=== PATIENT | male | born 1945 | race Caucasian/White ===

== ENCOUNTER 2016-10-10 18:20 | Inpatient (IN) | payer OTHER, MEDICARE ==
[~2016-10-10] VITALS: Ht 182.9 cm; Wt 121.0 kg
[2016-10-10] VITALS (8 sets, daily range): BP systolic 116–174; BP diastolic 56–74; PULSE 66–97; RESP 16–23; TEMP 97.9–98.1; O2SAT 93–96
--- NOTE | 2016-10-10 18:38 | PD ---
HPI Chief Complaint: Cardiac Complaint Time Seen by Provider: 18:31 Travel History International Travel<30 days: No Contact w/Intl Traveler<30days: No History of Present Illness HPI 71yo M with PMH of afib not on anticoagulation, CAD s/p CABG, aortic aneurysm ( No change with repeat CTs every 6 months so now it is every year) presents to the ED with c/o near syncopal episode today. Pt was sitting on the toilet when he felt dizzy, diaphoretic, almost passed out. Pt states it lasted about 45 minutes. As per EVAC, he had 2 episodes of Vtach that lasted less than 1 minute. Pt also had a near syncopal episode yesterday while sitting in a restaurant. While being evaluated in the ED, pt had an episode of Vtach in the 200s that lasted few seconds and went back to afib in 90s. Denies any chest pain, sob, n/v, abdominal pain, focal weakness or numbness or fall. Allergies-Medications Reported Meds & Prescriptions Reported Meds & Active Scripts Active Reported Clotrimazole Natalie (Clotrimazole) 10 Mg Troc 10 Mg PO 5 TIMES A DAY PRN Nitrostat SL (Nitroglycerin) 0.4 Mg Subl 0.4 Mg SL DIRECTED PRN 1 tablet under the tongue as needed for chest pain. Repeat every 5 minutes for a total of 3 DOSES or call 911 if NO relief. Crestor (Rosuvastatin Calcium) 20 Mg Tab 20 Mg PO HS Morphine ER (Morphine Sulfate) 15 Mg Tab 30 Mg PO HS Colace (Docusate Sodium) 100 Mg Capsule 200 Mg PO HS Tylenol Extra Strength (Acetaminophen) 500 Mg Tablet 1,000 Mg PO DAILY IN THE PM Potassium Chloride ER (Potassium Chloride) 10 Meq Tab 30 Meq PO DAILY PRN Metolazone 5 Mg Tab 5 Mg PO DAILY PRN Proventil Hfa 6.7 GM Inh (Albuterol Sulfate) 90 Mcg/Act Aer 2 Puff INH Q4H PRN Spiriva Handihaler (Tiotropium Inh) 18 Mcg Cap 18 Mcg INH DAILY 1 capsule = 18 mcg Symbicort Inh (Budesonide/Formoterol Fumarate) Unknown Strength Aero 2 Puff INH Q12HR Miralax Powder (Polyethylene Glycol 3350 Powder) 17 Gm Powd 17 Gm PO DAILY Mix and dissolve one measuring cap-ful (17 grams) in water or juice. Gabapentin 100 Mg Cap 200 Mg PO DAILY IN THE PM Gabapentin 100 Mg Cap 300 Mg PO BID In the am & hs Aspirin Adult Low Strength (Aspirin) 81 Mg Tabdr 81 Mg PO DAILY Spironolactone 25 Mg Tab 25 Mg PO BID Lasix (Furosemide) 40 Mg Tab 40 Mg PO BID Metoprolol Succinate ER 24 HR (Metoprolol Succinate) 100 Mg Tab 100 Mg PO BID Zantac (Ranitidine HCl) 300 Mg Tab 300 Mg PO BID One Daily (Multiple Vitamin) 1 Tab 1 Tab PO DAILY Morphine ER (Morphine Sulfate) 15 Mg Tab 15 Mg PO DAILY IN THE AM Glucosamine 1,500 Mg Tab 3,000 Mg PO DAILY Allopurinol 100 Mg Tab 300 Mg PO DAILY Mobic (Meloxicam) 15 Mg Tab 15 Mg PO DAILY Review of Systems Except as stated in HPI: all other systems reviewed are Neg Physical Exam Narrative GENERAL: 71yo M in mild distress. SKIN: Focused skin assessment warm/dry. HEAD: Atraumatic. Normocephalic. EYES: Pupils equal and round. No scleral icterus. No injection or drainage. ENT: No nasal bleeding or discharge. Mucous membranes pink and moist. NECK: Trachea midline. No JVD. CARDIOVASCULAR: Irregular rhythm. No murmur appreciated. RESPIRATORY: No accessory muscle use. Clear to auscultation. Breath sounds equal bilaterally. GASTROINTESTINAL: Abdomen soft, non-tender, nondistended. No rebound tenderness or guarding. MUSCULOSKELETAL: No obvious deformities. No clubbing. No cyanosis. No edema. NEUROLOGICAL: Awake and alert. No obvious cranial nerve deficits. Motor grossly within normal limits. Normal speech. PSYCHIATRIC: Appropriate mood and affect; insight and judgment normal. Data Data Last Documented VS Vital Signs Date Time Temp Pulse Resp B/P (MAP) Pulse Ox O2 Delivery O2 Flow Rate FiO2 10/10/16 18:49 90 23 120/56 (77) 93 Nasal Cannula 2.00 10/10/16 18:40 98.1 Orders Orders Electrocardiogram (10/10/16 18:31) Basic Metabolic Panel (Bmp) (10/10/16 18:31) Complete Blood Count With Diff (10/10/16 18:31) Magnesium (Mg) (10/10/16 18:31) B-Type Natriuretic Peptide (10/10/16 18:31) Troponin I (10/10/16 18:31) Act Partial Throm Time (Ptt) (10/10/16 18:31) Prothrombin Time / Inr (Pt) (10/10/16 18:31) Urinalysis - C+S If Indicated (10/10/16 18:31) Blood Glucose (10/10/16 18:31) Ecg Monitoring (10/10/16 18:31) Iv Access Insert/Monitor (10/10/16 18:31) Oximetry (10/10/16 18:31) Chest, Single Ap (10/10/16 ) Labs Laboratory Tests Test 10/10/16 18:45 White Blood Count 12.2 TH/MM3 Red Blood Count 4.19 MIL/MM3 Hemoglobin 13.7 GM/DL Hematocrit 42.4 % Mean Corpuscular Volume 101.0 FL Mean Corpuscular Hemoglobin 32.7 PG Mean Corpuscular Hemoglobin Concent 32.3 % Red Cell Distribution Width 15.1 % Platelet Count 184 TH/MM3 Mean Platelet Volume 9.9 FL Neutrophils (%) (Auto) 79.5 % Lymphocytes (%) (Auto) 11.7 % Monocytes (%) (Auto) 6.6 % Eosinophils (%) (Auto) 2.1 % Basophils (%) (Auto) 0.1 % Neutrophils # (Auto) 9.7 TH/MM3 Lymphocytes # (Auto) 1.4 TH/MM3 Monocytes # (Auto) 0.8 TH/MM3 Eosinophils # (Auto) 0.3 TH/MM3 Basophils # (Auto) 0.0 TH/MM3 CBC Comment DIFF FINAL Differential Comment Prothrombin Time 10.9 SEC Prothromb Time International Ratio 1.0 RATIO Activated Partial Thromboplast Time 25.9 SEC Blood Urea Nitrogen 28 MG/DL Creatinine 1.36 MG/DL Random Glucose 137 MG/DL Calcium Level 9.9 MG/DL Magnesium Level 2.1 MG/DL Sodium Level 136 MEQ/L Potassium Level 3.4 MEQ/L Chloride Level 97 MEQ/L Carbon Dioxide Level 30.4 MEQ/L Anion Gap 9 MEQ/L Estimat Glomerular Filtration Rate 52 ML/MIN Troponin I 0.07 NG/ML [facility] Medical Decision Making Medical Screen Exam Complete: Yes Emergency Medical Condition: Yes Interpretation(s) EKG: Afib at 87bpm. Normal axis. Differential Diagnosis Near syncope secondary to arrhythmia vs. vasovagal syncope vs. nonsustained VTach vs. electrolyte abnormality Narrative Course 71yo M with near syncope and runs of nonsustained Vtach here for evaluation. Labs reviewed, mild leukocytosis at 12.2. BUN/creatinine mildly elevated at 28/ 1.36. No prior to compare. Magnesium normal at 2.1. Troponin 0.07. Pt denies any chest pain or sob. Will trend. CXR showed no acute cardiopulmonary abnormality. Motion Study Analyst from [place]. Pt reevaluated at bedside and has no complaints now. Discussed with Dr. Bang and accepted to her service. Diagnosis Primary Impression: Near syncope Admitting Information Admitting Physician Requests: Observation Rosalba Murphy DO Oct 10, 2016 18:38
--- NOTE | 2016-10-10 19:05 | RADRPT ---
EXAM DATE/TIME: 10/10/2016 18:55 [facility] COMPARISON: No previous studies available for comparison. INDICATIONS : Chest pain. MEDICAL HISTORY : None. SURGICAL HISTORY : CABG. ENCOUNTER: Initial ACUITY: 1 day PAIN SCORE: 7/10 LOCATION: Bilateral chest FINDINGS: Portable AP views of the chest demonstrate a normal-sized cardiac silhouette in this patient post med mina sternotomy and CABG. There is interstitial prominence in the lower lung zones and lungs are under inflated. No effusion, consolidation, or pneumothorax is identified. Calcified granuloma overlies the left lower lung zone. Bones and soft tissues demonstrate no acute finding. CONCLUSION: No acute cardiopulmonary abnormality is identified. Aramis Thomas MD on October 10, 2016 at 19:03 Board Certified Radiologist. This report was verified electronically.
[2016-10-10 19:16] LABS: AUTOMATED NEUTROPHIL # 9.7 TH/MM3 (1.8-7.7); BASOPHIL % 0.1 % (0.0-2.0); EOSINOPHIL # 0.3 TH/MM3 (0-0.4); EOSINOPHIL % 2.1 % (0.0-4.0); HEMATOCRIT 42.4 % (39.0-51.0); HEMO FLAGS DIFF FINAL; LYMPH % 11.7 % (9.0-44.0); LYMPHOCYTE # 1.4 TH/MM3 (1.0-4.8); MEAN CORPUSCULAR HEMOGLOBIN 32.7 PG (27.0-34.0); MEAN CORPUSCULAR HGB CONC 32.3 % (32.0-36.0); MONO % 6.6 % (0.0-8.0); NEUT % 79.5 % (16.0-70.0); PLATELET COUNT 184 TH/MM3 (150-450); RED BLOOD COUNT 4.19 MIL/MM3 (4.50-5.90); RED CELL DISTRIBUTION WIDTH 15.1 % (11.6-17.2); WHITE BLOOD COUNT 12.2 TH/MM3 (4.0-11.0)
[2016-10-10] MEDS ORDERED: ALLO100T PO (19:21)
[2016-10-10] MEDS ORDERED: MORP1TAB24 PO ×2 (19:21→19:22)
[2016-10-10] MEDS ORDERED: MULT-207 PO (19:21)
[2016-10-10] MEDS ORDERED: FURO1TAB60 PO (19:21)
[2016-10-10] MEDS ORDERED: GABA100C4 PO ×2 (19:21)
[2016-10-10] MEDS ORDERED: MIRA3350 PO (19:21)
[2016-10-10] MEDS ORDERED: MOBI15TA PO (19:21)
[2016-10-10] MEDS ORDERED: ASPI1TAB91 PO (19:21)
[2016-10-10] MEDS ORDERED: METO100T9 PO (19:21)
[2016-10-10] MEDS ORDERED: GLUC15009 PO (19:21)
[2016-10-10] MEDS ORDERED: SPIR25TA PO (19:21)
[2016-10-10] MEDS ORDERED: ZANT300T PO (19:21)
[2016-10-10] MEDS ORDERED: ALBU6.7H INH (19:22)
[2016-10-10] MEDS ORDERED: COLA100C PO (19:22)
[2016-10-10] MEDS ORDERED: POTA10TA2 PO (19:22)
[2016-10-10] MEDS ORDERED: ACET-822 PO (19:22)
[2016-10-10] MEDS ORDERED: NITR0.4S SL (19:22)
[2016-10-10] MEDS ORDERED: METO5TAB3 PO (19:22)
[2016-10-10] MEDS ORDERED: ROSU20 PO (19:22)
[2016-10-10] MEDS ORDERED: CLOT10TR PO (19:22)
[2016-10-10] MEDS ORDERED: SPIRCAP INH (19:22)
[2016-10-10] MEDS ORDERED: SYMB80AE INH (19:22)
[2016-10-10 19:31] LABS: APTT (PATIENT) 25.9 SEC (24.3-30.1); PROTHROMBIN TIME - PATIENT 10.9 SEC (9.8-11.6)
[2016-10-10 19:36] LABS: BICARBONATE 30.4 MEQ/L (21.0-32.0); MAGNESIUM 2.1 MG/DL (1.5-2.5); POTASSIUM 3.4 MEQ/L (3.5-5.1)
[2016-10-10] MEDS ORDERED: NALOXONE HCL 0.4 MG/ML AMP IV PRN (20:15)
[2016-10-10] MEDS ORDERED: SODIUM CHLORIDE 0.9% FLUSH 10 ML FLUSH IV FLUSH PRN (20:15)
[2016-10-10] MEDS: SODIUM CHLORIDE 0.9% FLUSH 10 ML FLUSH IV FLUSH SCH (21:00)
[2016-10-10] MEDS ORDERED: POTASSIUM CHLORIDE 25 MEQ EFFERVESCENT TAB PO ONE (21:30)
[2016-10-11] VITALS (24 sets, daily range): BP systolic 90–127; BP diastolic 47–76; PULSE 54–70; RESP 18–20; TEMP 97.6–98.1; O2SAT 95–98
--- NOTE | 2016-10-11 03:17 | HHI.HP ---
HPI Service [facility] Primary Care Physician Primo Khan MD Admission Diagnosis Near syncope, nonsustained Vta Diagnoses: (1) Near syncope (2) Ventricular tachycardia, non-sustained Chief Complaint: Dizziness, lightheadedness, palpitations, and diaphoresis Travel History International Travel<30 Days: No Contact w/Intl Traveler <30 Da: No Traveled to Known Affected Are: No History of Present Illness Written by Shavon Ayala, acting as scribe for Dr. Bang on 10/11/16 at 03:16. On Sunday 10/08, while at a restaurant, went to go pay bill and felt light headed. Then, at three pm, he went to the bathroom, strained having a BM, became lightheaded, dizzy, and diaphoretic. He felt palpitations. He laid down on his bed and symptoms persisted. He called for his cousin (an RN) and she came in to see him. He says that she told him that she looked as "white as a sheet". She checked his bp and it was 71/45. She was unable to check his heart rate reliably - thought it was about 85. EMS found him to be in vtach and he was brought to hospital. Denies nausea, vomiting, diarrhea, black or red stool, fever, shortness of breath, chest pain, abdominal pain. Weight loss 89 lbs in the past year, intentional through weight loss program at the [facility] Does report waking up in a.m. 8-12 lbs heavier - takes metaxalone for (in addition to Lasix and Aldactone) and then "pees it off" the extra fluid and usually his K+ will drop so he takes K+ supplement. 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 Denies ventricular tachycardia, liver problems, hepatitis, kidney problems, DVT , PE, CVA, seizures, cancers, or prostate problems . Past Surgical History hand surgery bilateral CABG x 3 2008 Ablation for atrial fibrillation Cholecystectomy Total hip arthroplasty, left with revision in 2002 . Reported Medications Reported Meds & Active Scripts Active Reported Clotrimazole Natalie (Clotrimazole) 10 Mg Troc 10 Mg PO 5 TIMES A DAY PRN Nitrostat SL (Nitroglycerin) 0.4 Mg Subl 0.4 Mg SL DIRECTED PRN 1 tablet under the tongue as needed for chest pain. Repeat every 5 minutes for a total of 3 DOSES or call 911 if NO relief. Crestor (Rosuvastatin Calcium) 20 Mg Tab 20 Mg PO HS Morphine ER (Morphine Sulfate) 15 Mg Tab 30 Mg PO HS Colace (Docusate Sodium) 100 Mg Capsule 200 Mg PO HS Tylenol Extra Strength (Acetaminophen) 500 Mg Tablet 1,000 Mg PO DAILY IN THE PM Potassium Chloride ER (Potassium Chloride) 10 Meq Tab 30 Meq PO DAILY PRN Metolazone 5 Mg Tab 5 Mg PO DAILY PRN Proventil Hfa 6.7 GM Inh (Albuterol Sulfate) 90 Mcg/Act Aer 2 Puff INH Q4H PRN Spiriva Handihaler (Tiotropium Inh) 18 Mcg Cap 18 Mcg INH DAILY 1 capsule = 18 mcg Symbicort Inh (Budesonide/Formoterol Fumarate) Unknown Strength Aero 2 Puff INH Q12HR Miralax Powder (Polyethylene Glycol 3350 Powder) 17 Gm Powd 17 Gm PO DAILY Mix and dissolve one measuring cap-ful (17 grams) in water or juice. Gabapentin 100 Mg Cap 200 Mg PO DAILY IN THE PM Gabapentin 100 Mg Cap 300 Mg PO BID In the am & hs Aspirin Adult Low Strength (Aspirin) 81 Mg Tabdr 81 Mg PO DAILY Spironolactone 25 Mg Tab 25 Mg PO BID Lasix (Furosemide) 40 Mg Tab 40 Mg PO BID Metoprolol Succinate ER 24 HR (Metoprolol Succinate) 100 Mg Tab 100 Mg PO BID Zantac (Ranitidine HCl) 300 Mg Tab 300 Mg PO BID One Daily (Multiple Vitamin) 1 Tab 1 Tab PO DAILY Morphine ER (Morphine Sulfate) 15 Mg Tab 15 Mg PO DAILY IN THE AM Glucosamine 1,500 Mg Tab 3,000 Mg PO DAILY Allopurinol 100 Mg Tab 300 Mg PO DAILY Mobic (Meloxicam) 15 Mg Tab 15 Mg PO DAILY . Allergies: Coded Allergies: acetaminophen (Verified Adverse Reaction, Unknown, 10/10/16) oxycodone (Verified Adverse Reaction, Unknown, 10/10/16) Active Ordered Medications Current Medications Sodium Chloride (NS Flush) 2 ml UNSCH PRN IV FLUSH FLUSH AFTER USING IV ACCESS ; Start 10/10/16 at 20:15 Sodium Chloride (NS Flush) 2 ml BID IV FLUSH Last administered on 10/10/16 21: 00; Start 10/10/16 at 21:00 Naloxone HCl (Narcan Inj) 0.4 mg UNSCH PRN IV SEE LABEL COMMENTS; Start at 20:15 Potassium Bicarb/ Potassium Chloride (K-Lyte Cl Eff) 50 meq ONCE ONCE PO Last administered on 10/11/16 00:21; Start 10/10/16 at 21:30; Stop 10/10/16 at 21:31; Status DC . Family History Brother with tachycardia Father from CHF, age 78 Mother lived to age 91, from complications related to dementia - possibly Alzheimer's . Social History Tobacco: denies smoking, quit 1990 Alcohol: rare use, social Illicit Drugs: denies ever using any illicit drugs . Physical Exam Vital Signs Vital Signs Date Time Temp Pulse Resp B/P (MAP) Pulse Ox O2 Delivery O2 Flow Rate FiO2 10/11/16 00:18 97.6 68 18 108/67 (81) 96 10/11/16 00:00 67 10/10/16 23:00 70 10/10/16 22:00 69 10/10/16 21:30 66 10/10/16 21:30 97.9 66 22 117/72 (87) 96 10/10/16 21:06 10/10/16 20:13 69 16 116/74 (88) 96 Nasal Cannula 1.00 10/10/16 18:49 90 23 120/56 (77) 93 Nasal Cannula 2.00 10/10/16 18:47 93 Nasal Cannula 2.00 10/10/16 18:40 98.1 97 20 174/74 (107) 93 Room Air 10/10/16 18:40 100 18 93 Room Air 10/10/16 18:25 98.1 90 20 174/74 (107) 93 Physical Exam GENERAL: This is a well-nourished, well-developed patient, in no apparent distress. SKIN: No rashes, ecchymoses or lesions. Cool and dry. HEAD: Atraumatic. Normocephalic. No temporal or scalp tenderness. EYES:. No scleral icterus. No injection or drainage. ENT: Nose without bleeding, purulent drainage or septal hematoma. Airway patent. NECK: Trachea midline. No JVD CARDIOVASCULAR: Regular rate and rhythm without murmurs, gallops, or rubs. RESPIRATORY: Clear to auscultation. Breath sounds equal bilaterally. No wheezes , rales, or rhonchi. GASTROINTESTINAL: Abdomen soft, non-tender, nondistended. No guarding. MUSCULOSKELETAL: Extremities without clubbing, cyanosis, or edema. No calf tenderness. NEUROLOGICAL: Awake and alert. Motor and sensory grossly within normal limits. Normal speech. Laboratory Laboratory Tests Test 10/10/16 18:45 10/11/16 00:16 White Blood Count 12.2 Red Blood Count 4.19 Hemoglobin 13.7 Hematocrit 42.4 Mean Corpuscular Volume 101.0 Mean Corpuscular Hemoglobin 32.7 Mean Corpuscular Hemoglobin Concent 32.3 Red Cell Distribution Width 15.1 Platelet Count 184 Mean Platelet Volume 9.9 Neutrophils (%) (Auto) 79.5 Lymphocytes (%) (Auto) 11.7 Monocytes (%) (Auto) 6.6 Eosinophils (%) (Auto) 2.1 Basophils (%) (Auto) 0.1 Neutrophils # (Auto) 9.7 Lymphocytes # (Auto) 1.4 Monocytes # (Auto) 0.8 Eosinophils # (Auto) 0.3 Basophils # (Auto) 0.0 CBC Comment DIFF FINAL Differential Comment Prothrombin Time 10.9 Prothromb Time International Ratio 1.0 Activated Partial Thromboplast Time 25.9 Blood Urea Nitrogen 28 Creatinine 1.36 Random Glucose 137 Calcium Level 9.9 Magnesium Level 2.1 Sodium Level 136 Potassium Level 3.4 Chloride Level 97 Carbon Dioxide Level 30.4 Anion Gap 9 Estimat Glomerular Filtration Rate 52 Troponin I 0.07 0.43 B-Type Natriuretic Peptide 184 Total Creatine Kinase 140 Result Diagram: 10/10/165 10/10/16 1845 Imaging Last Impressions Chest X-Ray 10/10/16 0000 Signed Impressions: Service Date/Time: Monday, October 10, 2016 18:55 - CONCLUSION: No acute cardiopulmonary abnormality is identified. Aramis Thomas MD . Caprini VTE Risk Assessment Caprini VTE Risk Assessment: Mod/High Risk (score >= 2) Caprini Risk Assessment Model Point Value = 1 Point Value = 2 Point Value = 3 Point Value = 5 Age 41-60 Minor surgery BMI > 25 kg/m2 Swollen legs Varicose veins or History of unexplained or recurrent spontaneous Oral contraceptives or hormone replacement Sepsis (< 1 month) Serious lung disease, including pneumonia (< 1 month) Abnormal pulmonary function Acute myocardial infarction Congestive heart failure (< 1 month) History of inflammatory bowel disease Medical patient at bed rest Age 61-74 Arthroscopic surgery Major open surgery (> 45 min) Laparoscopic surgery (> 45 min) Malignancy Confined to bed (> 72 hours) Immobilizing plaster cast Central venous access Age >= 75 History of VTE Family history of VTE Factor V Leiden Prothrombin [id number] Lupus anticoagulant Anticardiolipin antibodies Elevated serum homocysteine Heparin-induced thrombocytopenia Other congenital or acquired thrombophilia Stroke (< 1 month) Elective arthroplasty Hip, pelvis, or leg fracture Acute spinal cord injury (< 1 month) Prophylaxis Regimen Total Risk Factor Score Risk Level Prophylaxis Regimen 0-1 Low Early ambulation 2 Moderate Order ONE of the following: *Sequential Compression Device (SCD) *Heparin 5000 units SQ BID 3-4 Higher Order ONE of the following medications: *Heparin 5000 units SQ TID *Enoxaparin/Lovenox 40 mg SQ daily (WT < 150 kg, CrCl > 30 mL/min) *Enoxaparin/Lovenox 30 mg SQ daily (WT < 150 kg, CrCl > 10-29 mL/min) *Enoxaparin/Lovenox 30 mg SQ BID (WT < 150 kg, CrCl > 30 mL/min) AND/OR *Sequential Compression Device (SCD) 5 or more Highest Order ONE of the following medications: *Heparin 5000 units SQ TID (Preferred with Epidurals) *Enoxaparin/Lovenox 40 mg SQ daily (WT < 150 kg, CrCl > 30 mL/min) *Enoxaparin/Lovenox 30 mg SQ daily (WT < 150 kg, CrCl > 10-29 mL/min) *Enoxaparin/Lovenox 30 mg SQ BID (WT < 150 kg, CrCl > 30 mL/min) AND *Sequential Compression Device (SCD) Assessment and Plan Problem List: (1) Near syncope ICD Code: R55 - Syncope and collapse Status: Acute (2) Ventricular tachycardia, non-sustained ICD Code: I47.2 - Ventricular tachycardia Assessment and Plan Near Syncope suspected secondary to Nonsustained Ventricular Tachycardia - discussed etiology of v tach with the patient - check serial EKGs and cardiac enzymes to r/o ACS - initial troponin I 0.07, second 0.43 - denies chest pain, may be rate related and ARF related - consult cardiology (he goes to [facility] cardiology nurse as an outpatient) - check echocardiogram for cardiac function and structure - K corrected- will check mag, and recheck k in am Hypokalemia - Potassium replaced - recheck BMP in a.m. and follow results - replace K+ as needed Type 2 diabetes mellitus, controlled by diet - reports recent HgA1C 6 - diabetic diet Acute Renal Failure - BUN - 28, Creatinine - 1.36, eGFR - 52 - likely secondary to diuretics though patient denies any history of kidney problems - repeat BMP in a.m. and follow trends in renal indices - avoid nephrotoxins Probable chronic CHF - BNP mildly elevated at 184 - closely monitor I and Os - CXR with no acute cardiopulmonary abnormality identified . This note was transcribed by melisa [Shavon Ayala]. I, Dr. Earnest Bang personally performed the history, physical exam, and medical decision making; and confirmed the accuracy of the information in the transcribed note. Authenticated by Dr. Earnest Bang on 10/11/16 at 03:16 changed to inpatient - pt with symptomatic Vtach, hypotension, dizziness, near syncope Discussed Condition With ER physician, RN, and patient Shavon Ayala Oct 11, 2016 03:17 Earnest Bang MD Oct 11, 2016 04:09
[2016-10-11] MEDS ORDERED: RESP: ALBUTEROL 2.5 MG/IPRATROPIUM 0.5 MG NEB (PRN) NEB (04:00)
[2016-10-11] MEDS: HEPARIN SODIUM - SQ 10,000 UNITS/ML VIAL SQ SCH ×3 (06:10→21:04)
[2016-10-11] MEDS: MORPHINE SULFATE 15 MG CONTROLLED RELEASE TAB PO SCH ×2 (06:10→20:59)
[2016-10-11 06:38] LABS: AUTOMATED NEUTROPHIL # 4.7 TH/MM3 (1.8-7.7); BASOPHIL % 0.4 % (0.0-2.0); EOSINOPHIL # 0.2 TH/MM3 (0-0.4); EOSINOPHIL % 2.6 % (0.0-4.0); HEMATOCRIT 38.2 % (39.0-51.0); HEMO FLAGS DIFF FINAL; LYMPH % 23.5 % (9.0-44.0); LYMPHOCYTE # 1.7 TH/MM3 (1.0-4.8); MEAN CORPUSCULAR HEMOGLOBIN 34.1 PG (27.0-34.0); MEAN CORPUSCULAR HGB CONC 33.4 % (32.0-36.0); MONO % 9.8 % (0.0-8.0); NEUT % 63.7 % (16.0-70.0); PLATELET COUNT 163 TH/MM3 (150-450); RED BLOOD COUNT 3.75 MIL/MM3 (4.50-5.90); RED CELL DISTRIBUTION WIDTH 14.9 % (11.6-17.2); WHITE BLOOD COUNT 7.4 TH/MM3 (4.0-11.0)
[2016-10-11 07:02] LABS: BICARBONATE 27.9 MEQ/L (21.0-32.0); POTASSIUM 3.7 MEQ/L (3.5-5.1)
[2016-10-11] MEDS: POLYETHYLENE GLYCOL 17 GM PKG PO SCH (08:48)
[2016-10-11] MEDS: GABAPENTIN 300 MG CAP PO SCH ×2 (08:49→20:57)
[2016-10-11] MEDS: FUROSEMIDE 40 MG TAB PO SCH ×2 (08:50→21:03)
[2016-10-11] MEDS: FAMOTIDINE 20 MG TAB PO SCH ×2 (08:50→21:02)
[2016-10-11] MEDS: ALLOPURINOL 300 MG TAB PO SCH (08:50)
[2016-10-11] MEDS: SPIRONOLACTONE 25 MG TAB PO SCH ×2 (08:51→20:57)
[2016-10-11] MEDS: SODIUM CHLORIDE 0.9% FLUSH 10 ML FLUSH IV FLUSH SCH ×2 (08:51→21:05)
[2016-10-11] MEDS ORDERED: METOPROLOL SUCCINATE 50 MG EXTENDED RELEASE TAB PO SCH (09:00)
[2016-10-11] MEDS ORDERED: ASPIRIN EC 81 MG TABEC PO SCH (09:00)
[2016-10-11] MEDS: TIOTROPIUM BROMIDE 18 MCG INH INH SCH (10:03)
--- NOTE | 2016-10-11 10:24 | MB ---
cc: KRYSTLE HOOKS DATE OF CONSULTATION 10/11/2016 REASON FOR CONSULTATION Ventricular tachycardia, near-syncope. HISTORY OF PRESENT ILLNESS The patient is a 71-year-old white male, followed by a [place] council on aging director, with a history of coronary artery disease, diabetes, hypertension, sleep apnea, paroxysmal atrial fibrillation status post ablation in 2010 who presented to the emergency room with tachycardiac palpitations and near-syncope. Yesterday at about 05:00 p.m. while straining to have a bowel movement, he began to develop lightheadedness to the point of near syncope associated with fairly severe diaphoresis and mild nausea. He also had a sensation of being cold and clammy. The episode lasted about an hour. In the emergency department, he reportedly had wide complex tachycardia. He denies ever losing consciousness completely. Two days ago while sitting at a table after eating at a restaurant, he had about a 1-minute episode of lightheadedness without associated pain, diaphoresis or nausea. The patient denies any recent angina, shortness of breath, paroxysmal nocturnal dyspnea. Occasionally he experiences mild dependent edema. He reports compliance with his medications. PAST MEDICAL HISTORY 1. Coronary artery disease status post three-vessel bypass surgery 2008. 2. Borderline diabetes 3. Hypertension 4. Sleep apnea 5. Paroxysmal atrial fibrillation status post ablation in [place], [place] 2010. 6. Hyperlipidemia. PAST SURGICAL HISTORY 1. Coronary artery bypass grafting 2008 2. Cholecystectomy 3. Bilateral hand surgery 4. Left total hip arthroplasty CARDIAC MEDICATIONS AT HOME 1. Crestor or 20 mg q.h.s. 2. Potassium chloride 30 mEq daily 3. Metolazone 5 mg daily p.r.n. 4. Aspirin 81 mg daily 5. Spirolactone 25 mg b.i.d. 6. Furosemide 40 mg b.i.d. 7. Metoprolol succinate 100 mg b.i.d. ALLERGIES ACETAMINOPHEN AND OXYCODONE FAMILY HISTORY Noncontributory SOCIAL HISTORY The patient quit smoking many years ago. He denies alcohol abuse. REVIEW OF SYSTEMS As in the history of present illness, otherwise negative or noncontributory. He also denies headache, visual changes, unilateral weakness or numbness, abdominal pain, melena, dyspepsia, bright red blood per rectum. PHYSICAL EXAM On physical examination, his blood pressure 113/64 with a pulse of 63, respirations 20. In general, he is a well-developed, well-nourished white male in no acute distress. HEENT: On examination, jugular venous pressure is hard to assess. Carotid pulses are 2+ bilaterally and without bruits. CHEST: Examination of the chest reveals clear lung carreno. CARDIAC: On cardiac examination, he has a regular rhythm and rate without S3, S4 or murmur. ABDOMEN: On abdominal examination, he had a soft, obese, nontender abdomen. Bowel sounds are present. There is no definite hepatosplenomegaly. EXTREMITIES: Examination of his extremities reveals no clubbing, cyanosis or edema. Chest x-ray shows no acute disease. EKG from 10/10/2016 at 06:35 p.m. shows possible sinus rhythm with premature atrial complexes, nonspecific intraventricular conduction delay, inferior wall infarct age undetermined, nonspecific ST changes. EKG from 10/10/2016, at 11:37 p.m. shows sinus rhythm with occasional premature atrial complex and occasional premature ventricular complex, inferior infarct age undetermined, nonspecific ST changes. LABORATORY DATA Includes potassium of 3.7, BUN 32, creatinine 1.19, troponin 0.43, CK 140, INR 1.0. WBC 7.4, hemoglobin 12.8, platelets 163. IMPRESSION Sustained tachycardia, near-syncope in this 71-year-old white male with a history of coronary artery disease status post bypass surgery 2008, history of atrial fibrillation status post ablation 2010, history of sleep apnea, hypertension, diabetes. I suspect his episode of near syncope which occurred while straining to have a bowel movement and was associated with diaphoresis and nausea was mostly a vasovagal-mediated event. On the other hand, he did demonstrate a somewhat wide complex tachycardia on monitoring in the emergency department. Unfortunately, it appears it was not captured on a 12-lead EKG. The tachycardia is suggestive of an aberrantly conducted supraventricular tachycardia. The initial portion of the QRS complex during the tachycardia is similar to the initial deflection of the QRS with his intrinsic sinus beats. Overall, there was no definitive evidence for acute coronary syndrome. A slightly elevated troponin level may be due to the tachyarrhythmia. He has had no recent angina symptoms. CK levels are negative for myocardial infarction. No diagnostic ST-segment or T-wave changes are seen and EKG's. According to the patient, he has a history of amiodarone-induced lung and thyroid toxicity. RECOMMENDATIONS 1. Await his 2-D echo. 2. Unless his left ventricular function is severely reduced, we will try to start him on sotalol 80 mg b.i.d. and reduce his metoprolol dosing to 100 mg daily 3. At this point, as I do not see any definitive evidence for recurrent atrial fibrillation, I would recommend continuing daily aspirin and continuous cardiac monitoring here in the hospital for at least 48 hours. 4. If he has recurrent tachyarrhythmias refractory to medical therapy, recommend electrophysiology consultation. MD RANDI Bear/BORA /9:56 AM /10:10 AM MTDD
[2016-10-11] MEDS: GABAPENTIN 100 MG CAP PO SCH (12:00)
[2016-10-11] MEDS: SOTALOL HCL 80 MG TAB PO SCH ×2 (12:00→20:59)
[2016-10-11] MEDS: BUDESONIDE-FORMOTEROL 160/4.5 MCG INHALER INH SCH ×2 (14:51→21:00)
--- NOTE | 2016-10-11 19:36 | EKG ---
Date Performed: 10/11/2016 Time Performed: 05:04:12 PTAGE: 71 years EKG: Sinus rhythm with 1st degree A-V block. PVC Prolonged QT interval Low QRS voltages in precordial leads Abnormal E CG PREVIOUS TRACING : 10/10/2016 23.37 Compared to prior tracing no significant change DOCTOR: Adria Wilson Interpretating Date/Time 10/11/2016 19:35:19
--- NOTE | 2016-10-11 19:41 | EKG ---
Date Performed: 10/10/2016 Time Performed: 23:37:42 PTAGE: 71 years EKG: Sinus rhythm with PVCs and PACs Anterolateral T wave changes are nonspecific Low QRS voltages in precordial leads Abnormal ECG PREVIOUS TRACING : 10/10/2016 18.35 Compared to prior tracing no significant change DOCTOR: Adria Wilson Interpretating Date/Time 10/11/2016 19:39:49
--- NOTE | 2016-10-11 19:49 | EKG ---
Date Performed: 10/10/2016 Time Performed: 18:35:45 PTAGE: 71 years EKG: ATRIAL FIBRILLATION MODERATE INTRAVENTRICULAR CONDUCTION DELAY MINIMAL ST DEPRESSION ABNORM AL RHYTHM ECG NO PREVIOUS TRACING DOCTOR: Adria Wilson Interpretating Date/Time 10/11/2016 19:49:01
[2016-10-11] MEDS: DOCUSATE SODIUM 100 MG CAP PO SCH (20:58)
[2016-10-11] MEDS: ATORVASTATIN 40 MG TAB PO SCH (21:01)
[2016-10-11 22:20] LABS: BLOOD, URINE NEG (NEG); COMMENT (UR) CULT NOT INDICATED; CULTURE IF INDICATED CULT NOT INDICATED; GLUCOSE,URINE NEG (NEG); KETONE, URINE NEG (NEG); NITRITE,URINE NEG (NEG); SQUAMOUS EPITHELIAL CELL URINE <1 /hpf (0-5); URINE COLOR LIGHT-YELLOW (YELLW/STRAW)
[2016-10-12] VITALS (22 sets, daily range): BP systolic 108–135; BP diastolic 56–81; PULSE 50–65; RESP 18–20; TEMP 97–98.1; O2SAT 95–98
[2016-10-12] MEDS: HEPARIN SODIUM - SQ 10,000 UNITS/ML VIAL SQ SCH ×3 (06:33→21:01)
[2016-10-12] MEDS: FAMOTIDINE 20 MG TAB PO SCH ×2 (07:49→21:01)
[2016-10-12] MEDS: ASPIRIN EC 325 MG TABEC PO SCH (07:49)
[2016-10-12] MEDS: GABAPENTIN 300 MG CAP PO SCH ×2 (07:50→21:01)
[2016-10-12] MEDS: ALLOPURINOL 300 MG TAB PO SCH (07:50)
[2016-10-12] MEDS: SOTALOL HCL 80 MG TAB PO SCH ×3 (07:50→21:02)
[2016-10-12] MEDS: FUROSEMIDE 40 MG TAB PO SCH ×2 (07:50→21:02)
[2016-10-12] MEDS: POLYETHYLENE GLYCOL 17 GM PKG PO SCH (07:50)
[2016-10-12] MEDS: BUDESONIDE-FORMOTEROL 160/4.5 MCG INHALER INH SCH ×2 (07:51→21:09)
[2016-10-12] MEDS: SPIRONOLACTONE 25 MG TAB PO SCH ×2 (07:51→21:01)
[2016-10-12] MEDS: TIOTROPIUM BROMIDE 18 MCG INH INH SCH (07:51)
[2016-10-12] MEDS: SODIUM CHLORIDE 0.9% FLUSH 10 ML FLUSH IV FLUSH SCH ×2 (07:51→21:01)
--- NOTE | 2016-10-12 08:11 | PD.CARD.PN ---
Subjective Subjective Remarks Denies CP, dyspnea, palpitations, dizziness, near syncope, nausea. Slept fairly well. Objective Medications Item Value Date Time Aspirin 325 mg 10/12/16 0900 (Ecotrin Ec) DAILY/PO Metoprolol 100 mg 10/12/16 0900 Succinate DAILY/PO (Toprol Xl) Atorvastatin 40 mg 10/11/16 2100 Calcium HS/PO 10/11/162100 (Lipitor) Sotalol HCl 80 mg 10/11/16 1100 (Betapace) Q12HR/PO 10/11/162058 Spironolactone 25 mg 10/11/16 0900 (Aldactone) BID/PO 10/11/162056 Furosemide 40 mg 10/11/16 0900 (Lasix) BID/PO 10/11/162102 Heparin Sodium 5,000 units 10/11/16 0600 (Porcine) Q8HR/SQ 10/12/16 0633 (Heparin Inj) Vital Signs / I&O Vital Signs Date Time Temp Pulse Resp B/P (MAP) Pulse Ox O2 Delivery O2 Flow Rate FiO2 10/12/16 07:36 98 Nasal Cannula 2.00 10/12/16 07:00 55 10/12/16 07:00 98.0 62 18 108/65 (79) 98 10/12/16 06:00 60 10/12/16 05:00 56 10/12/16 04:00 50 10/12/16 04:00 97.8 53 18 135/81 (99) 97 10/12/16 03:00 53 10/12/16 03:00 97 Bi-Pap 10/12/16 02:00 56 10/12/16 01:00 60 10/12/16 00:00 98.1 58 18 120/73 (89) 96 10/12/16 00:00 60 10/11/16 23:00 54 10/11/16 23:00 96 Bi-Pap 10/11/16 22:09 18 10/11/16 22:00 62 10/11/16 21:00 62 10/11/16 20:00 98.1 60 20 117/66 (83) 98 10/11/16 20:00 58 10/11/16 19:00 98 Nasal Cannula 2.00 10/11/16 19:00 62 10/11/16 18:03 67 10/11/16 17:00 58 10/11/16 16:00 61 10/11/16 16:00 98.0 59 18 90/47 (61) 95 10/11/16 15:00 58 10/11/16 14:00 59 10/11/16 13:00 61 10/11/16 12:00 65 10/11/16 12:00 97.9 62 19 113/63 (80) 97 10/11/16 11:00 65 10/11/16 10:00 68 10/11/16 09:00 70 I/O 10/11/16 10/11/16 10/11/16 10/12/16 10/12/16 10/12/16 07:00 15:00 23:00 07:00 15:00 23:00 Intake Total 420 ml 480 ml 480 ml Output Total 650 ml 1325 ml 1750 ml Balance -230 ml -845 ml -1270 ml Intake Oral 420 ml 480 ml 480 ml Output Urine Total 650 ml 1325 ml 1750 ml # Voids 1 # Bowel Movements 1 Physical Exam GENERAL: Well developed, well nourished. No acute distress. HEENT: Jugular venous pressure is normal. CHEST: Lungs clear to auscultation bilaterally. Unlabored respiratory effort. CARDIAC: Regular rate and rhythm without S3, S4, or murmur. ABDOMEN: Soft, nontender, no hepatosplenomegaly. Bowel sounds present. EXTREMITIES: No clubbing, cyanosis, or edema. Laboratory Laboratory Tests Test 10/11/16 21:45 Urine Color LIGHT-YELLOW Urine Turbidity CLEAR Urine pH 7.0 Urine Specific [place] 1.009 Urine Protein NEG mg/dL Urine Glucose (UA) NEG mg/dL Urine Ketones NEG mg/dL Urine Occult Blood NEG Urine Nitrite NEG Urine Bilirubin NEG Urine Urobilinogen LESS THAN 2.0 MG/DL Urine Leukocyte Esterase NEG Urine RBC LESS THAN 1 /hpf Urine WBC LESS THAN 1 /hpf Urine Squamous Epithelial Cells <1 /hpf Microscopic Urinalysis Comment CULT NOT INDICATED Assessment and Plan Problem List: (1) Wide QRS ventricular tachycardia ICD Codes: I47.2 - Ventricular tachycardia Status: Acute Plan: Two salvoes, 4 and 5 beats, of wide complex tachycardia early this morning, morphology suggestive of aberrantly conducted SVT, possibly atrial tachycardia (begins with long-short R-R interval, initial portion of QRS during tachycardia similar to sinus QRS beats, preceding atrial activity evident). REC increase sotalol to 160 mg bid, await echo (2) CAD (coronary artery disease) ICD Codes: I25.10 - Atherosclerotic heart disease of [place] coronary artery without angina pectoris Status: Chronic Plan: Stable. No definite evidence for ACS. Continue medical therapy. (3) Paroxysmal atrial fibrillation ICD Codes: I48.0 - Paroxysmal atrial fibrillation Status: Resolved Plan: History of atrial fib ablation. No definite evidence on monitoring for recurrent atrial fibrillation. (4) Hypertension ICD Codes: I10 - Essential (primary) hypertension Status: Chronic Plan: Stable. Mostly normotensive. Continue to monitor. Code Status full code Discussed Condition With patient Problem Qualifiers (1) CAD (coronary artery disease): Qualified Codes: I25.10 - Atherosclerotic heart disease of [place] coronary artery without angina pectoris (2) Hypertension: Qualified Codes: I10 - Essential (primary) hypertension Alex Gaitan MD Oct 12, 2016 08:11
[2016-10-12] MEDS ORDERED: METOPROLOL SUCCINATE 50 MG EXTENDED RELEASE TAB PO SCH (09:00)
[2016-10-12] MEDS: MORPHINE SULFATE 15 MG CONTROLLED RELEASE TAB PO SCH ×2 (10:09→21:01)
--- NOTE | 2016-10-12 11:16 | EKG ---
Date Performed: 10/12/2016 Time Performed: 05:38:08 PTAGE: 71 years EKG: Sinus bradycardia with 1st degree A-V block Poor R wave progression - probable normal varia nt Inferior T wave changes are nonspecific Abnormal ECG PREVIOUS TRACING : 10/11/2016 05.04 No significant change from previous tracing noted. DOCTOR: Alex Gaitan Interpretating Date/Time 10/12/2016 11:13:36
[2016-10-12] MEDS: GABAPENTIN 100 MG CAP PO SCH (12:27)
--- NOTE | 2016-10-12 12:30 | ECHRPT ---
Indication: Unspecified combined systolic (congestive) and diastolic (congestive) heart failure CONCLUSIONS The left ventricular systolic function is mildly reduced with an estimated ejection fraction in the range of 45- 50%. Wall thickness is measured at the upper limits of normal. Normal left ventricular size. There is mild tricuspid valve regurgitation. The estimated pulmonary arterial pressure is 28 mmHg. BP: 135 / 81 HR: 70 Rhythm: Sinus MEASUREMENTS (Male / Female) Normal Values Technical Quality:Fair 2D ECHO LV Diastolic Diameter PLAX 4.9 cm 4.2 - 5.9 / 3.9 - 5.3 cm LV Systolic Diameter PLAX 3.9 cm IVS Diastolic Thickness 1.2 cm 0.6 - 1.0 / 0.6 - 0.9 cm LVPW Diastolic Thickness 1.1 cm 0.6 - 1.0 / 0.6 - 0.9 cm LV Relative Wall Thickness 0.5 RV Internal Dim ED PLAX 2.5 cm LVOT Diameter 2.6 cm M-MODE Aortic Root Diameter MM 2.6 cm LA Systolic Diameter MM 4.5 cm LA Ao Ratio MM 1.7 AV Cusp Separation MM 1.5 cm DOPPLER AV Peak Velocity 121.0 cm/s AV Peak Gradient 5.9 mmHg LVOT Peak Velocity 71.1 cm/s LVOT Peak Gradient 2.0 mmHg AV Area Cont Eq pk 3.1 cm MR Peak Velocity 267.0 cm/s MR Peak Gradient 28.5 mmHg Mitral E Point Velocity 89.3 cm/s Mitral A Point Velocity 52.3 cm/s Mitral E to A Ratio 1.7 LV E' Lateral Velocity 9.6 cm/s Mitral E to LV E' Lateral Ratio 9.4 LV E' Septal Velocity 5.7 cm/s Mitral E to LV E' Septal Ratio 15.8 TR Peak Velocity 213.0 cm/s TR Peak Gradient 18.1 mmHg PV Peak Velocity 106.0 cm/s PV Peak Gradient 4.5 mmHg FINDINGS LEFT VENTRICLE The left ventricular systolic function is mildly reduced with an estimated ejection fraction in the range of 45- 50%. Wall thickness is measured at the upper limits of normal. Normal left ventricular size. RIGHT VENTRICLE Normal right ventricular size and systolic function. LEFT ATRIUM The left atrial size is normal. RIGHT ATRIUM The right atrial size is normal. ATRIAL SEPTUM Normal atrial septal thickness without atrial level shunting by limited color doppler interrogation. AORTA The aortic root and proximal ascending aorta are normal in size on limited imaging. MITRAL VALVE Structurally normal mitral valve. No mitral valve stenosis or regurgitation. AORTIC VALVE Trileaflet aortic valve. No aortic valve stenosis or regurgitation. TRICUSPID VALVE There is mild tricuspid valve regurgitation. The estimated pulmonary arterial pressure is 28 mmHg. PULMONARY VALVE The pulmonary valve is not well visualized. VESSELS The inferior vena cava is normal in size. PERICARDIUM No pericardial effusion. Artem Cervantes MD, FACC (Electronically Signed) Final Date:12 October 2016 12:29
--- NOTE | 2016-10-12 15:34 | HHI.PR ---
Subjective Remarks Follow up near syncope. Patient states he feels great, no chest pain, sob, dizziness or palpitations. He did have an episode overnight with a 4 beat run of VTach. Vitals remained stable, currently on RA. Objective Vitals Vital Signs Date Time Temp Pulse Resp B/P (MAP) Pulse Ox O2 Delivery O2 Flow Rate FiO2 10/12/16 15:20 97 Room Air 10/12/16 15:19 60 10/12/16 15:19 97.6 63 18 114/56 (75) 98 10/12/16 14:34 58 10/12/16 13:23 65 10/12/16 12:08 62 10/12/16 11:15 60 10/12/16 11:15 97.7 56 18 121/77 (92) 97 10/12/16 11:00 97 Nasal Cannula 2.00 10/12/16 10:00 62 10/12/16 09:34 65 10/12/16 07:36 98 Nasal Cannula 2.00 10/12/16 07:00 55 10/12/16 07:00 98.0 62 18 108/65 (79) 98 10/12/16 06:00 60 10/12/16 05:00 56 10/12/16 04:00 50 10/12/16 04:00 97.8 53 18 135/81 (99) 97 10/12/16 03:00 53 10/12/16 03:00 97 Bi-Pap 10/12/16 02:00 56 10/12/16 01:00 60 10/12/16 00:00 98.1 58 18 120/73 (89) 96 10/12/16 00:00 60 10/11/16 23:00 54 10/11/16 23:00 96 Bi-Pap 10/11/16 22:09 18 10/11/16 22:00 62 10/11/16 21:00 62 10/11/16 20:00 98.1 60 20 117/66 (83) 98 10/11/16 20:00 58 10/11/16 19:00 98 Nasal Cannula 2.00 10/11/16 19:00 62 10/11/16 18:03 67 10/11/16 17:00 58 10/11/16 16:00 61 10/11/16 16:00 98.0 59 18 90/47 (61) 95 I/O 10/11/16 10/11/16 10/11/16 10/12/16 10/12/16 10/12/16 06:59 14:59 22:59 06:59 14:59 22:59 Intake Total 420 ml 480 ml 480 ml Output Total 650 ml 1325 ml 1750 ml Balance -230 ml -845 ml -1270 ml Intake Oral 420 ml 480 ml 480 ml Output Urine Total 650 ml 1325 ml 1750 ml # Voids 1 # Bowel Movements 1 Result Diagram: 10/11/16 0440 10/11/160 Objective Remarks GENERAL: SKIN: Warm and dry. HEAD: Atraumatic. Normocephalic. EYES: Pupils equal and round. No scleral icterus. No injection or drainage. ENT: No nasal bleeding or discharge. Mucous membranes pink and moist. NECK: Trachea midline. No JVD. CARDIOVASCULAR: Regular rate and rhythm. RESPIRATORY: No accessory muscle use. Clear to auscultation. Breath sounds equal bilaterally. GASTROINTESTINAL: Abdomen soft, non-tender, nondistended. Hepatic and splenic margins not palpable. MUSCULOSKELETAL: Extremities without clubbing, cyanosis, or edema. No obvious deformities. NEUROLOGICAL: Awake and alert. No obvious cranial nerve deficits. Motor grossly within normal limits. Normal speech. PSYCHIATRIC: Appropriate mood and affect; insight and judgment normal. Medications and IVs Current Medications Medications (Trade) Dose Ordered Sig/Juarez Route Start Time Stop Time Status Last Admin (NS Flush) 2 ml UNSCH PRN IV FLUSH 10/10/16 20:15 (NS Flush) 2 ml BID IV FLUSH 10/10/16 21:00 10/12/16 07:51 (Narcan Inj) 0.4 mg UNSCH PRN IV 10/10/16 20:15 (Zyloprim) 300 mg DAILY PO 10/11/16 09:00 10/12/16 07:50 (Colace) 200 mg HS PO 10/11/16 21:00 10/11/16 20:58 (Lasix) 40 mg BID PO 10/11/16 09:00 10/12/16 07:50 (Oramorph Sr) 15 mg 0800 PO 10/11/16 08:00 10/12/16 10:09 (Oramorph Sr) 30 mg HS PO 10/11/16 21:00 10/11/16 20:59 (Miralax) 17 gm DAILY PO 10/11/16 09:00 10/12/16 07:50 (Aldactone) 25 mg BID PO 10/11/16 09:00 10/12/16 07:51 (Spiriva Inh) 18 mcg DAILY INH 10/11/16 09:00 10/11/16 10:03 (Symbicort 160-4.5 Inh) 2 puff Q12HR INH 10/11/16 13:00 10/12/16 07:51 (Pepcid) 40 mg BID PO 10/11/16 09:00 10/12/16 07:49 (Lipitor) 40 mg HS PO 10/11/16 21:00 10/11/16 21:01 (Duoneb Neb) 1 ampule Q4HR NEB PRN NEB 10/11/16 04:00 (Neurontin) 300 mg Q12H PO 10/11/16 08:00 10/12/16 07:50 (Neurontin) 200 mg 1200 PO 10/11/16 12:00 10/12/16 12:27 (Heparin Inj) 5,000 units Q8HR SQ 10/11/16 06:00 10/12/16 12:26 (Ecotrin Ec) 325 mg DAILY PO 10/12/16 09:00 10/12/16 07:49 (Toprol Xl) 100 mg DAILY PO 10/12/16 09:00 10/12/16 07:50 (Betapace) 160 mg Q12HR PO 10/12/16 09:00 10/12/16 10:09 A/P Problem List: (1) Near syncope ICD Code: R55 - Syncope and collapse Status: Acute (2) Ventricular tachycardia, non-sustained ICD Code: I47.2 - Ventricular tachycardia (3) Wide QRS ventricular tachycardia ICD Code: I47.2 - Ventricular tachycardia Status: Acute Assessment and Plan Near Syncope suspected secondary to Wide QRS v tach - cardiology following, Sotalol increased to 160 BID - awaiting echocardiogram Hypokalemia - Cont to trend, replace as needed Type 2 diabetes mellitus, controlled by diet - reports recent HgA1C 6 - diabetic diet Acute Renal injury, resolved, creatine 1.3-->1.1 -Trend creatine DVT prophylaxis: Heparin Discharge Planning Possible discharge tomorrow per cardiology Attending Statement No complaint of chest pain shortness breath or palpitations. Urinating well. wants to go home soon. 2-D echo reviewed with the patient with EF of 45-50%, appreciate cardiology evaluation and sotalol dose increased. Patient presented with acute kidney injury superimposed on chronic kidney disease stage II. Avoid nephrotoxins and continue to monitor. The exam, history, and the medical decision making described in the above note were completed with the assistance of the dictating practitioner. I reviewed and agree with the findings presented. I attest that I had a face-to face encounter with the patient on the same day and personally performed and documented my assessment and findings in the medical record. Alea Perez Oct 12, 2016 15:34 Jackie Lowe MD Oct 12, 2016 17:08
[2016-10-12] MEDS: DOCUSATE SODIUM 100 MG CAP PO SCH (21:02)
[2016-10-12] MEDS: ATORVASTATIN 40 MG TAB PO SCH (21:02)
[2016-10-13] VITALS (22 sets, daily range): BP systolic 108–143; BP diastolic 61–83; PULSE 47–68; RESP 18–22; TEMP 97.5–98.1; O2SAT 93–97
[2016-10-13] MEDS: HEPARIN SODIUM - SQ 10,000 UNITS/ML VIAL SQ SCH ×3 (06:04→21:11)
--- NOTE | 2016-10-13 08:24 | PD.CARD.PN ---
Subjective Subjective Remarks No CP, dyspnea, dizziness, palpitations, PND. Slept well. Feels "great". Objective Medications Item Value Date Time Aspirin 325 mg 10/12/16 0900 (Ecotrin Ec) DAILY/PO 10/12/16 0749 Metoprolol 100 mg 10/12/16 0900 Succinate DAILY/PO 10/12/16 0750 (Toprol Xl) Sotalol HCl 160 mg 10/12/16 0900 (Betapace) Q12HR/PO 10/12/162101 Atorvastatin 40 mg 10/11/16 2100 Calcium HS/PO 10/12/162101 (Lipitor) Furosemide 40 mg 10/11/16 0900 (Lasix) BID/PO 10/12/162101 Spironolactone 25 mg 10/11/16 0900 (Aldactone) BID/PO 10/12/162100 Heparin Sodium 5,000 units 10/11/16 0600 (Porcine) Q8HR/SQ 10/13/16 0604 (Heparin Inj) Vital Signs / I&O Vital Signs Date Time Temp Pulse Resp B/P (MAP) Pulse Ox O2 Delivery O2 Flow Rate FiO2 10/13/16 07:00 52 10/13/16 07:00 93 Room Air 10/13/16 07:00 97.8 53 18 130/78 (95) 93 10/13/16 06:00 52 10/13/16 05:00 54 10/13/16 04:00 52 10/13/16 04:00 98.1 50 18 116/69 (85) 97 10/13/16 04:00 Room Air 10/13/16 03:00 52 10/13/16 02:00 48 10/13/16 01:00 54 10/13/16 00:00 Room Air 10/13/16 00:00 56 10/13/16 00:00 97.7 60 20 143/83 (103) 95 10/12/16 23:00 56 10/12/16 22:01 20 10/12/16 22:00 58 10/12/16 21:00 58 10/12/16 20:00 95 Bi-Pap 10/12/16 20:00 97.0 56 20 127/74 (91) 95 10/12/16 20:00 60 10/12/16 19:00 54 10/12/16 18:10 60 10/12/16 17:43 55 10/12/16 15:20 97 Room Air 10/12/16 15:19 60 10/12/16 15:19 97.6 63 18 114/56 (75) 98 10/12/16 14:34 58 10/12/16 13:23 65 10/12/16 12:08 62 10/12/16 11:15 60 10/12/16 11:15 97.7 56 18 121/77 (92) 97 10/12/16 11:00 97 Nasal Cannula 2.00 10/12/16 10:00 62 10/12/16 09:34 65 I/O 10/12/16 10/12/16 10/12/16 10/13/16 10/13/16 10/13/16 07:00 15:00 23:00 07:00 15:00 23:00 Intake Total 480 ml 825 ml 480 ml Output Total 1750 ml 950 ml 110 ml Balance -1270 ml -125 ml 370 ml Intake Oral 480 ml 825 ml 480 ml Output Urine Total 1750 ml 950 ml 110 ml # Bowel Movements 2 1 Physical Exam GENERAL: Well developed, well nourished. No acute distress. HEENT: Jugular venous pressure is normal. CHEST: Lungs clear to auscultation bilaterally. Unlabored respiratory effort. CARDIAC: Regular rate and rhythm without S3, S4, or murmur. ABDOMEN: Soft, nontender, no hepatosplenomegaly. Bowel sounds present. EXTREMITIES: No clubbing, cyanosis, or edema. Assessment and Plan Problem List: (1) Wide QRS ventricular tachycardia ICD Codes: I47.2 - Ventricular tachycardia Status: Acute Plan: Patient with continued salvoes of wide complex tachycardia, difficult to tell if VT or aberrantly conducted SVT. Patient asymptomatic. EF reported as 45-50% on technically difficult echo. No recurrent near syncope/syncope. 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 REC consult Dr. Corey, consider EP study further decrease metoprolol dosing, continue sotalol for now (2) CAD (coronary artery disease) ICD Codes: I25.10 - Atherosclerotic heart disease of [place] coronary artery without angina pectoris Status: Chronic Plan: Stable. No definite evidence for ACS. Continue medical therapy. EF reported as 45-50% on technically difficult echo. (3) Paroxysmal atrial fibrillation ICD Codes: I48.0 - Paroxysmal atrial fibrillation Status: Resolved Plan: History of atrial fib ablation 2010. No definite evidence on monitoring for recurrent atrial fibrillation. (4) Hypertension ICD Codes: I10 - Essential (primary) hypertension Status: Chronic Plan: Stable. Mostly normotensive. Continue to monitor. Code Status full code Discussed Condition With patient Problem Qualifiers (1) CAD (coronary artery disease): Qualified Codes: I25.10 - Atherosclerotic heart disease of [place] coronary artery without angina pectoris (2) Hypertension: Qualified Codes: I10 - Essential (primary) hypertension Alex Gaitan MD Oct 13, 2016 08:24
[2016-10-13] MEDS: FUROSEMIDE 40 MG TAB PO SCH ×2 (08:44→21:12)
[2016-10-13] MEDS: ALLOPURINOL 300 MG TAB PO SCH (08:44)
[2016-10-13] MEDS: TIOTROPIUM BROMIDE 18 MCG INH INH SCH (08:44)
[2016-10-13] MEDS: MORPHINE SULFATE 15 MG CONTROLLED RELEASE TAB PO SCH ×2 (08:44→21:12)
[2016-10-13] MEDS: SOTALOL HCL 80 MG TAB PO SCH ×2 (08:44→21:22)
[2016-10-13] MEDS: FAMOTIDINE 20 MG TAB PO SCH ×2 (08:45→21:13)
[2016-10-13] MEDS: SPIRONOLACTONE 25 MG TAB PO SCH ×2 (08:45→21:22)
[2016-10-13] MEDS: ASPIRIN EC 325 MG TABEC PO SCH (08:45)
[2016-10-13] MEDS: METOPROLOL SUCCINATE 50 MG EXTENDED RELEASE TAB PO SCH (08:45)
[2016-10-13] MEDS: POLYETHYLENE GLYCOL 17 GM PKG PO SCH (08:46)
[2016-10-13] MEDS: GABAPENTIN 300 MG CAP PO SCH ×2 (08:46→21:11)
[2016-10-13] MEDS: BUDESONIDE-FORMOTEROL 160/4.5 MCG INHALER INH SCH ×2 (08:48→21:14)
[2016-10-13] MEDS: SODIUM CHLORIDE 0.9% FLUSH 10 ML FLUSH IV FLUSH SCH ×2 (08:48→21:13)
[2016-10-13] MEDS: GABAPENTIN 100 MG CAP PO SCH (11:08)
--- NOTE | 2016-10-13 11:55 | EKG ---
Date Performed: 10/12/2016 Time Performed: 11:07:26 PTAGE: 71 years EKG: Sinus bradycardia with sinus arrhythmia with PVC(s) with 1st degree A-V block. Prolonged QT interval Inferior infarct - age undetermined Abnormal ECG Compared to prior tracing no significant c hange PREVIOUS TRACING : 10/12/2016 05.38 DOCTOR: Atif Moctezuma Interpretating Date/Time 10/13/2016 11:48:57
--- NOTE | 2016-10-13 15:25 | HHI.PR ---
Subjective Remarks No complaint chest pain shortness of her palpitations. Wants to go home soon. Objective Vitals Vital Signs Date Time Temp Pulse Resp B/P (MAP) Pulse Ox O2 Delivery O2 Flow Rate FiO2 10/13/16 14:41 61 10/13/16 13:11 62 10/13/16 12:41 59 10/13/16 11:00 98.0 54 18 108/61 (77) 93 10/13/16 11:00 64 10/13/16 11:00 93 Room Air 10/13/16 09:09 56 10/13/16 08:53 55 10/13/16 07:00 52 10/13/16 07:00 93 Room Air 10/13/16 07:00 97.8 53 18 130/78 (95) 93 10/13/16 06:00 52 10/13/16 05:00 54 10/13/16 04:00 52 10/13/16 04:00 98.1 50 18 116/69 (85) 97 10/13/16 04:00 Room Air 10/13/16 03:00 52 10/13/16 02:00 48 10/13/16 01:00 54 10/13/16 00:00 Room Air 10/13/16 00:00 56 10/13/16 00:00 97.7 60 20 143/83 (103) 95 10/12/16 23:00 56 10/12/16 22:01 20 10/12/16 22:00 58 10/12/16 21:00 58 10/12/16 20:00 95 Bi-Pap 10/12/16 20:00 97.0 56 20 127/74 (91) 95 10/12/16 20:00 60 10/12/16 19:00 54 10/12/16 18:10 60 10/12/16 17:43 55 I/O 10/12/16 10/12/16 10/12/16 10/13/16 10/13/16 10/13/16 07:00 15:00 23:00 07:00 15:00 23:00 Intake Total 480 ml 825 ml 480 ml Output Total 1750 ml 950 ml 110 ml Balance -1270 ml -125 ml 370 ml Intake Oral 480 ml 825 ml 480 ml Output Urine Total 1750 ml 950 ml 110 ml # Bowel Movements 2 1 Result Diagram: 10/11/1643910/11/16439 Objective Remarks GENERAL: This is a well-nourished, well-developed patient, in no apparent distress. CARDIOVASCULAR: Regular rate and rhythm RESPIRATORY: Clear to auscultation. Breath sounds equal bilaterally. No wheezes , rales, or rhonchi. GASTROINTESTINAL: Abdomen soft, non-tender, nondistended. Normal active bowel sounds MUSCULOSKELETAL: Extremities without clubbing, cyanosis, 1+ edema NEURO: Alert & Oriented x4 to person, place, time, situation. Moves all ext x4 A/P Problem List: (1) Near syncope ICD Code: R55 - Syncope and collapse Status: Acute (2) Ventricular tachycardia, non-sustained ICD Code: I47.2 - Ventricular tachycardia (3) Wide QRS ventricular tachycardia ICD Code: I47.2 - Ventricular tachycardia Status: Acute Assessment and Plan Near Syncope suspected secondary to Wide QRS v tach - cardiology following, continue to monitor patient on Sotalol 160 BID, patient has denied any symptoms of dizziness. -Echo with EF 45-50%. Continue with Toprol-XL. Dr. Gaitan still concerned on intermittent wide Q RS V. tach and patient did not tolerate amiodarone in the past. He is requesting consultation with Dr. Corey evaluate for EP study. Hypokalemia - Cont to trend, replace as needed Type 2 diabetes mellitus, controlled by diet - reports recent HgA1C 6 - Continue diabetic diet Acute Renal injury, with underlying chronic kidney disease stage II - resolved, creatine 1.3-->1.1 -Trend creatine History of sleep apnea- has home C Pap DVT prophylaxis: Heparin Discharge Planning Discharge home when cleared by cardiology. Jackie Lowe MD Oct 13, 2016 15:25
[2016-10-13] MEDS ORDERED: ALUMINUM/MAGNESIUM/SIMETH 30 ML CUP PO PRN (15:30)
[2016-10-13] MEDS: ATORVASTATIN 40 MG TAB PO SCH (21:12)
[2016-10-13] MEDS: DOCUSATE SODIUM 100 MG CAP PO SCH (21:12)
--- NOTE | 2016-10-13 22:31 | MB ---
cc: NEERAJ CANDELARIO DATE OF CONSULTATION 10/13/16 REASON FOR CONSULTATION Wide complex tachyarrhythmia. HISTORY OF PRESENT ILLNESS Mr. Stauffer is a 71-year-old gentleman with history of coronary artery disease, coronary artery bypass grafting, previous atrial fibrillation ablation, COPD, sleep apnea admitted to the emergency room due to dizziness and near-syncope. On admission at the emergency room, he had a wide complex tachyarrhythmia. I was consulted for evaluation and management. The chart was reviewed. The patient was evaluated. ALLERGIES ACETAMINOPHEN OXYCODONE SOCIAL HISTORY Negative for smoking and drinking. FAMILY HISTORY Noncontributory to his current medical condition. MEDICATIONS Currently 1. Albuterol. 2. Aspirin. 3. Lipitor 40 mg a day, 4. Famotidine 40 mg twice a day. 5. Lasix 40 mg twice a day. 6. Neurontin 600 mg a day. 7. Metoprolol 100 mg a day. 8. Morphine. 9. Sotalol 160 mg twice a day 10. Aldactone 25 mg twice a day. REVIEW OF SYSTEMS Currently referred no chest discomfort. Referred yesterday having some dizziness and palpitation but no vomiting. No fever. PHYSICAL EXAMINATION GENERAL: Alert, fully oriented. VITAL SIGNS: Blood pressure 116/70, pulse 54, respiratory rate 18 LUNGS: Ventilated CARDIOVASCULAR: S1-S2 regular. No gallop. ABDOMEN: Soft. No mass. No bruit. EXTREMITIES: No edema. CARDIOLOGY STUDIES Electrocardiogram - sinus rhythm, PVC, inferior ST changes. LABORATORY DATA Hemoglobin 12.8, white blood cell 7.4, potassium 2.7, creatinine 1.19, troponin 0.35, INR 1.0. ASSESSMENT AND RECOMMENDATIONS Mr. Stauffer has a history of atrial fibrillation. He had in the emergency room also an episode of tachyarrhythmia, rate reached around 180 to over 200 beats per minute. The patient was symptomatic. There was no change of axis. This is most likely atrial fibrillation, atrial tachycardia. The gentleman has multiple risk factors. He needs to be anticoagulated. He is already on Sotalol and metoprolol. He is going to need an ablation. Case extensively discussed with him. I am going to initiate Eliquis. The gentleman is skeptical about the . I explained to him the medication. The study indicated medication is pretty safe. [facility] If at that point they decide to change the medication, he will stop it. I discussed with him the risk of stroke. I will see him at the office in two or three weeks. Okay to discharge home. MD LUCIO Alejandro/ /9:52 PM /10:19 PM
[2016-10-14] VITALS (12 sets, daily range): BP systolic 117–135; BP diastolic 67–80; PULSE 50–63; RESP 18–22; TEMP 97.8–98.4; O2SAT 97–98
[2016-10-14] MEDS: APIXABAN 5 MG TABLET PO SCH ×2 (01:37→08:08)
[2016-10-14] MEDS: TIOTROPIUM BROMIDE 18 MCG INH INH SCH (08:06)
[2016-10-14] MEDS: FAMOTIDINE 20 MG TAB PO SCH (08:07)
[2016-10-14] MEDS: ALLOPURINOL 300 MG TAB PO SCH (08:07)
[2016-10-14] MEDS: MORPHINE SULFATE 15 MG CONTROLLED RELEASE TAB PO SCH (08:07)
[2016-10-14] MEDS: METOPROLOL SUCCINATE 50 MG EXTENDED RELEASE TAB PO SCH (08:07)
[2016-10-14] MEDS: FUROSEMIDE 40 MG TAB PO SCH (08:08)
[2016-10-14] MEDS: GABAPENTIN 300 MG CAP PO SCH (08:08)
[2016-10-14] MEDS: SOTALOL HCL 80 MG TAB PO SCH (08:08)
[2016-10-14] MEDS: POLYETHYLENE GLYCOL 17 GM PKG PO SCH (08:08)
[2016-10-14] MEDS: SODIUM CHLORIDE 0.9% FLUSH 10 ML FLUSH IV FLUSH SCH (08:08)
[2016-10-14] MEDS: SPIRONOLACTONE 25 MG TAB PO SCH (08:08)
[2016-10-14] MEDS: ASPIRIN EC 325 MG TABEC PO SCH (08:08)
[2016-10-14] MEDS: BUDESONIDE-FORMOTEROL 160/4.5 MCG INHALER INH SCH (08:09)
[2016-10-14] MEDS ORDERED: METO50TA11 PO (09:53)
[2016-10-14] MEDS ORDERED: APIX5TAB PO (09:53)
[2016-10-14] MEDS ORDERED: SOTA80 PO (09:53)
--- NOTE | 2016-10-14 09:55 | HHI.DCPOC ---
Discharge Care Plan Diagnosis: (1) Paroxysmal atrial fibrillation (2) CAD (coronary artery disease) (3) Near syncope Goals to Promote Your Health * To prevent worsening of your condition and complications * To maintain your health at the optimal level Directions to Meet Your Goals Take your medications as prescribed Follow your dietary instruction Follow activity as directed Keep your appointments as scheduled Take your immunizations and boosters as scheduled If your symptoms worsen call your PCP, if no PCP go to Urgent Care Center or Emergency Room Smoking is Dangerous to Your Health. Avoid second hand smoke Call the 24-hour hour crisis hotline for domestic abuse at Albertina Cazares MD Oct 14, 2016 09:55
--- NOTE | 2016-10-14 09:56 | HHI.DS ---
Discharge Summary Admission Date Oct 11, 2016 at 04:54 Discharge Date: Oct 14, 2016 Admitting Diagnosis Near syncope, nonsustained Vtach (1) Paroxysmal atrial fibrillation ICD Code: I48.0 - Paroxysmal atrial fibrillation Diagnosis: Principal Status: Resolved (2) CAD (coronary artery disease) ICD Code: I25.10 - Atherosclerotic heart disease of ka[place] coronary artery without angina pectoris Diagnosis: Secondary Status: Chronic (3) Hypertension ICD Code: I10 - Essential (primary) hypertension Diagnosis: Secondary Status: Chronic Procedures see HPI Brief History - From Admission Written by Shavon Ayala, acting as scribe for Dr. Bang on 10/11/16 at 03:16. On Sunday 10/08, while at a restaurant, went to go pay bill and felt light headed. Then, at three pm, he went to the bathroom, strained having a BM, became lightheaded, dizzy, and diaphoretic. He felt palpitations. He laid down on his bed and symptoms persisted. He called for his cousin (an RN) and she came in to see him. He says that she told him that she looked as "white as a sheet". She checked his bp and it was 71/45. She was unable to check his heart rate reliably - thought it was about 85. EMS found him to be in vtach and he was brought to hospital. Denies nausea, vomiting, diarrhea, black or red stool, fever, shortness of breath, chest pain, abdominal pain. Weight loss 89 lbs in the past year, intentional through [facility] program [facility] Does report waking up in a.m. 8-12 lbs heavier - takes metaxalone for (in addition to Lasix and Aldactone) and then "pees it off" the extra fluid and usually his K+ will drop so he takes K+ supplement. CBC/BMP: 10/11/16 0440 10/11/16 0440 Significant Findings Laboratory Tests Test 10/11/16 21:45 Imaging Last Impressions Chest X-Ray 10/10/16 0000 Signed Impressions: Service Date/Time: Monday, October 10, 2016 18:55 - CONCLUSION: No acute cardiopulmonary abnormality is identified. Aramis Thomas MD PE at Discharge GENERAL: This is a well-nourished, well-developed patient, in no apparent distress. CARDIOVASCULAR: Regular rate and rhythm RESPIRATORY: Clear to auscultation. Breath sounds equal bilaterally. No wheezes , rales, or rhonchi. GASTROINTESTINAL: Abdomen soft, non-tender, nondistended. Normal active bowel sounds MUSCULOSKELETAL: Extremities without clubbing, cyanosis, 1+ edema NEURO: Alert & Oriented x4 to person, place, time, situation. Moves all ext x4 Pt update on day of discharge f/u for atrial fibrillation patient denied any SOB, palpitations, CP, lightheadedness or dizziness. patient very anxious to go home. Lots of questions about his stay here and on Eliquis. 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 -cardiology following and patient was put on Sotalol 160 BID and metoprolol. he did well on medication. -Echo was done and showed with EF 45-50%. -/ [facility] consulted and will need ablation. cleared patient for discharge and stated to f/u in 2 weeks. He also strongly recommend Eliquis. I again reviewed risk, benefits and side effects of medication extensively with patient. Hypokalemia - replenished as needed Type 2 diabetes mellitus, controlled by diet - reports recent HgA1C 6 - Continue diabetic diet Acute Renal injury, with underlying chronic kidney disease stage II -due to hypoperfusion. improved with fluids. History of sleep apnea- has home C Pap Pt Condition on Discharge: Stable Discharge Disposition: Discharge Home Discharge Time: > 30 minutes Discharge Instructions DIET: Follow Instructions for: Heart Healthy Diet Activities you can perform: Regular-No Restrictions Follow up Referrals: Cardiology - 2 Weeks with Abhishek Corey MD PCP Follow-up - 1 Week New Medications: Apixaban (Eliquis) 5 Mg Tab 5 MG PO BID for Blood Clot Prevention, #60 TAB 0 Refills Metoprolol Succinate ER 24 HR (Metoprolol Succinate ER 24 HR) 50 Mg Tab 50 MG PO DAILY for atrial fibrilllation, #60 TAB 0 Refills Sotalol (Sorine) 80 Mg Tab 160 MG PO Q12HR for atrial fibrillation, #60 TAB 0 Refills Continued Medications: Acetaminophen (Tylenol Extra Strength) 500 Mg Tablet 1000 MG PO DAILY IN THE PM Albuterol 6.7 GM Inh (Proventil Hfa 6.7 GM Inh) 90 Mcg/Act Aer 2 PUFF INH Q4H PRN for SHORTNESS OF BREATH, #1 INHALER 0 Refills Allopurinol (Allopurinol) 100 Mg Tab 300 MG PO DAILY for Gout, #30 TAB [address] (Aspirin Adult Low Strength) 81 Mg Tabdr 81 MG PO DAILY, TAB Budesonide-Formoterol Inh (Symbicort Inh) Unknown Strength Aero 2 PUFF INH Q12HR for Asthma Management, #1 INHALER 0 Refills Clotrimazole Donovan (Clotrimazole Donovan) 10 Mg Troc 10 MG PO 5 TIMES A DAY PRN for FUNGAL INFECTION, DONOVAN 0 Refills Docusate Sodium (Colace) 100 Mg Capsule 200 MG PO HS Furosemide (Lasix) 40 Mg Tab 40 MG PO BID, #60 TAB 0 Refills Gabapentin (Gabapentin) 100 Mg Cap 300 MG PO BID, #60 CAP 0 Refills In the am & hs Gabapentin (Gabapentin) 100 Mg Cap 200 MG PO DAILY IN THE PM, #30 CAP 0 Refills Glucosamine (Glucosamine) 1,500 Mg Tab 3000 MG PO DAILY for Herbal Supplements, TAB 0 Refills Metolazone (Metolazone) 5 Mg Tab 5 MG PO DAILY PRN for EDEMA, #30 TAB 0 Refills Morphine ER (Morphine ER) 15 Mg Tab 15 MG PO DAILY IN THE AM for Pain Management, TAB 0 Refills Morphine ER (Morphine ER) 15 Mg Tab 30 MG PO HS for Pain Management, TAB 0 Refills Multiple Vitamin (One Daily) 1 Tab 1 TAB PO DAILY for Nutritional Supplement, TAB 0 Refills Nitroglycerin SL (Nitrostat SL) 0.4 Mg Subl 0.4 MG SL DIRECTED PRN for CHEST PAIN, #100 TAB.SL 0 Refills 1 tablet under the tongue as needed for chest pain. Repeat every 5 minutes for a total of 3 DOSES or call 911 if NO relief. Polyethylene Glycol 3350 Powder (Miralax Powder) 17 Gm Powd 17 GM PO DAILY for Constipation, #1 CAN 0 Refills Mix and dissolve one measuring cap-ful (17 grams) in water or juice. Potassium Chloride ER (Potassium Chloride ER) 10 Meq Tab 30 MEQ PO DAILY PRN for WHEN TAKING METOLAZONE, #30 TAB 0 Refills Ranitidine (Zantac) 300 Mg Tab 300 MG PO BID, TAB 0 Refills Rosuvastatin (Crestor) 20 Mg Tab 20 MG PO HS for Cholesterol Management, #30 TAB 0 Refills Spironolactone (Spironolactone) 25 Mg Tab 25 MG PO BID, #60 TAB 0 Refills Tiotropium Inh (Spiriva Handihaler) 18 Mcg Cap 18 MCG INH DAILY for COPD, #30 CAP 0 Refills 1 capsule = 18 mcg Discontinued Medications: Meloxicam (Mobic) 15 Mg Tab 15 MG PO DAILY, TAB 0 Refills Metoprolol Succinate ER 24 HR (Metoprolol Succinate ER 24 HR) 100 Mg Tab 100 MG PO BID, #30 TAB 0 Refills Albertina Cazares MD Oct 14, 2016 09:56
--- NOTE | 2016-10-14 18:43 | EKG ---
Date Performed: 10/13/2016 Time Performed: 12:52:48 PTAGE: 71 years EKG: Sinus bradycardia with 1st degree A-V block. Incomplete LBBB Inferior infarct - age undeter mined Abnormal ECG Compared to prior tracing no significant change DOCTOR: Adria Wilson Interpretating Date/Time 10/14/2016 18:42:15
== END 2016-10-14 10:46 | disposition home or self-care (01) | DRG 309 ==
LOC: NEPC 18:20 → NEDA 20:07 → HCIS 21:18 → OBSVTOIN 10-11 04:54 → HCIS 10-12 09:00
PROVIDERS: ADMIT Family Medicine; ATTEND Family Medicine
DX: I47.1 Supraventricular tachycardia (principal); I13.0 Hypertensive heart and chronic kidney disease with heart failure and stage 1 through stage 4 chronic kidney disease, or unspecified chronic kidney disease; N17.9 Acute kidney failure, unspecified; E11.22 Type 2 diabetes mellitus with diabetic chronic kidney disease; I50.9 Heart failure, unspecified; I48.0 Paroxysmal atrial fibrillation; J44.9 Chronic obstructive pulmonary disease, unspecified; R55 Syncope and collapse; E87.6 Hypokalemia; E78.5 Hyperlipidemia, unspecified; G47.33 Obstructive sleep apnea (adult) (pediatric); I25.10 Atherosclerotic heart disease of native coronary artery without angina pectoris; N18.2 Chronic kidney disease, stage 2 (mild); T50.2X5A Adverse effect of carbonic-anhydrase inhibitors, benzothiadiazides and other diuretics, initial encounter; Z87.891 Personal history of nicotine dependence; Z95.1 Presence of aortocoronary bypass graft; Z96.642 Presence of left artificial hip joint
CPT/HCPCS: 71010; 80048; 81001; 82550; 83735; 83880; 84484; 85025; 85610; 85730; 93005; 93306; G0378; J1644

== ENCOUNTER 2016-12-26 18:46 | Emergency (ER) | payer OTHER ==
[2016-12-26 18:46] VITALS: BP 130/64
[~2016-12-26 18:46] MED LIST: ACET-822 PO; ALBU6.7H INH; ALLO100T PO; APIX5TAB PO; ASPI81TA16 PO; CLOT10TR PO; COLA100C5 PO; FURO1TAB60 PO; GABA100C4 PO; GLUC15009 PO; METO1TAB9 PO; METO5TAB3 PO; MIRA3350 PO; MORP1TAB24 PO; MULT-207 PO; NITR0.4S SL; POTA10TA2 PO; ROSU20 PO; SOTA80 PO; SPIR25TA PO; SPIRCAP INH; SYMB80AE INH; ZANT300T PO
[2016-12-26] MEDS ORDERED: SODIUM BICARBONATE 8.4% INJ 50 MEQ/50 ML SYR IV ONE (18:47)
[2016-12-26] MEDS ORDERED: EPINEPHrine HCL (1:10,000) 1 MG/10 ML SYRINGE IV ONE (18:47)
[2016-12-26] MEDS ORDERED: CALCIUM CHLORIDE 10% SOLN 1 GRAM/10 ML SYR IV ONE (18:47)
--- NOTE | 2016-12-26 19:02 | PD ---
HPI Chief Complaint: Cardiac arrest Time Seen by Provider: 19:01 Travel History International Travel<30 days: No (unknown) Contact w/Intl Traveler<30days: No (unknown) History of Present Illness HPI 71yo M with PMH of CAD, paroxysmal afib, HTN, aortic aneurysm presents to the ED in cardiac arrest. Pt had a witnessed arrest by but did not start CPR because she was scared. [facility] arrived and pt was in vfib and was shocked 3 times but rhythm became asystole. CPR was started at 18:17. Pt given 4 of epinephrine and one sodium bicarb. Pt arrived with combitube with bilateral breath sounds, good end tidal CO2 and color change. Pt had fixed and dilated pupils and was in asystole. ACLS was continued and and another 3 epi was given as well as sodium bicarb and calcium chloride. PFSH Past Medical History Hx Anticoagulant Therapy: Yes Arthritis: Yes Asthma: Yes Atrial Fibrillation: Yes Anxiety: No Depression: No Heart Rhythm Problems: Yes Cancer: No Cardiac Catheterization: Yes Cardiovascular Problems: Yes (HTN, STENTS, CABGX3, HLD, CAD ) High Cholesterol: Yes COPD: Yes Coronary Artery Disease: Yes Diabetes: Yes (Borderline ) GERD: Yes Hypertension: Yes Immune Disorder: No Neurologic: No Psychiatric: No Reproductive: No Respiratory: Yes (SLEEP APNEA ) Sleep Apnea: Yes Thyroid Disease: Yes (Hyperthyroid ) Triglycerides - High: Yes Past Surgical History Abdominal Surgery: Yes (GALLBLADDER REMOVAL ) Cardiac Surgery: Yes (CABG X3, ABLATION X1 2011) Joint Replacement: Yes (Left hip x 2 ) Pacemaker: No Social History Alcohol Use: Yes (RARE ) Tobacco Use: No (QUIT 1990) Substance Use: No Allergies-Medications (Allergen,Severity, Reaction): Coded Allergies: acetaminophen (Verified Adverse Reaction, Unknown, 10/10/16) oxycodone (Verified Adverse Reaction, Unknown, 10/10/16) Reported Meds & Prescriptions Reported Meds & Active Scripts Active Sorine (Sotalol HCl) 80 Mg Tab 160 Mg PO Q12HR Metoprolol Succinate ER 24 HR (Metoprolol Succinate) 50 Mg Tab 50 Mg PO DAILY Eliquis (Apixaban) 5 Mg Tab 5 Mg PO BID Reported Clotrimazole Natalie (Clotrimazole) 10 Mg Troc 10 Mg PO 5 TIMES A DAY PRN Nitrostat SL (Nitroglycerin) 0.4 Mg Subl 0.4 Mg SL DIRECTED PRN 1 tablet under the tongue as needed for chest pain. Repeat every 5 minutes for a total of 3 DOSES or call 911 if NO relief. Crestor (Rosuvastatin Calcium) 20 Mg Tab 20 Mg PO HS Morphine ER (Morphine Sulfate) 15 Mg Tab 30 Mg PO HS Colace (Docusate Sodium) 100 Mg Capsule 200 Mg PO HS Tylenol Extra Strength (Acetaminophen) 500 Mg Tablet 1,000 Mg PO DAILY IN THE PM Potassium Chloride ER (Potassium Chloride) 10 Meq Tab 30 Meq PO DAILY PRN Metolazone 5 Mg Tab 5 Mg PO DAILY PRN Proventil Hfa 6.7 GM Inh (Albuterol Sulfate) 90 Mcg/Act Aer 2 Puff INH Q4H PRN Spiriva Handihaler (Tiotropium Inh) 18 Mcg Cap 18 Mcg INH DAILY 1 capsule = 18 mcg Symbicort Inh (Budesonide/Formoterol Fumarate) Unknown Strength Aero 2 Puff INH Q12HR Miralax Powder (Polyethylene Glycol 3350 Powder) 17 Gm Powd 17 Gm PO DAILY Mix and dissolve one measuring cap-ful (17 grams) in water or juice. Gabapentin 100 Mg Cap 200 Mg PO DAILY IN THE PM Gabapentin 100 Mg Cap 300 Mg PO BID In the am & hs Aspirin Adult Low Strength (Aspirin) 81 Mg Tabdr 81 Mg PO DAILY Spironolactone 25 Mg Tab 25 Mg PO BID Lasix (Furosemide) 40 Mg Tab 40 Mg PO BID Zantac (Ranitidine HCl) 300 Mg Tab 300 Mg PO BID One Daily (Multiple Vitamin) 1 Tab 1 Tab PO DAILY Morphine ER (Morphine Sulfate) 15 Mg Tab 15 Mg PO DAILY IN THE AM Glucosamine 1,500 Mg Tab 3,000 Mg PO DAILY Allopurinol 100 Mg Tab 300 Mg PO DAILY Review of Systems ROS Limitations: Clinical Condition Physical Exam Narrative GENERAL: 71yo M unresponsive. SKIN: Focused skin assessment warm/dry. Midline surgical scar in chest and right upper abdomen. HEAD: Atraumatic. Normocephalic. EYES: Pupils fixed and dilated bilaterally. ENT: No nasal bleeding or discharge. Mucous membranes pink and moist. NECK: Trachea midline. No JVD. CARDIOVASCULAR: Asystole. RESPIRATORY: Bilateral breath sounds from combitube. GASTROINTESTINAL: Abdomen soft. MUSCULOSKELETAL: No obvious deformities. No clubbing. No cyanosis. No edema. NEUROLOGICAL: Unresponsive. MDM Medical Decision Making Medical Screen Exam Complete: Yes Emergency Medical Condition: Yes Differential Diagnosis Massive PA vs. PE vs. aortic aneurysm rupture Narrative Course 71yo M here in cardiac arrest. Pt arrived already with dilated and fixed pupils and in asystole. Continue ACLS but no change in rhythm. Bedside ultrasound showed no cardiac activity. Time of called at 18:57. Spoke to pt's and answered all questions. Spoke to Dr. Recio who is covering Dr. Khan and he will let Dr. Khan know to sign the certificate. Diagnosis Primary Impression: Cardiac arrest Disposition: 20 Condition: Rosalba Murphy Dec 26, 2016 19:02
== END 2016-12-26 18:57 | disposition expired ==
LOC: PHED 18:46
DX: I46.9 Cardiac arrest, cause unspecified (principal)
CPT/HCPCS: 92950; 99285; J0171